=== PATIENT | male | born 1955 | race African-American/Black ===

== ENCOUNTER 2024-06-17 18:07 | Inpatient (IN) | payer MEDICARE ==
[2024-06-17] MEDS ORDERED: Bisacodyl 10 MG SUPP PR PRN (19:02)
[2024-06-17] MEDS ORDERED: Ondansetron PF 4 MG/2 ML Vial IVP PRN (19:02)
[2024-06-17] MEDS ORDERED: Acetaminophen 325 MG TAB PO PRN (19:02)
[2024-06-17] MEDS ORDERED: Communication Order-Pharmacy FS SCH (19:15)
[2024-06-17] MEDS: Tamsulosin HCl 0.4 MG CAP PO SCH (21:03)
[2024-06-17] MEDS: Famotidine 20 MG TAB PO SCH (21:03)
[2024-06-17] MEDS: HYDROcodone/Acetaminophen 5/325 mg Tablet PO PRN (21:05)
[2024-06-17] MEDS: Aspirin 81 mg Enteric Coated Tablet PO SCH (21:07)
[2024-06-17 21:13] LABS: ALT (SGPT) 15 U/L (8-55); AST (SGOT) 18 U/L (5-34); Alkaline Phosphatase 103 U/L (40-110); Anion Gap 12 mmol/L (10-20); BUN (Urea Nitrogen) 14 mg/dL (8.4-25.7); Bilirubin, Total 0.3 mg/dL (0.2-1.2); Calc. Creatinine Clearance 0 mL/min (70-130); Calcium 8.8 mg/dL (7.8-10.44); Carbon Dioxide 19 mmol/L (23-31); Chloride 111 mmol/L (98-107); Estimated GFR 95; Globulin 3.6 g/dL (2.4-3.5); Glucose 122 mg/dL (80-115); Potassium 3.5 mmol/L (3.5-5.1); Protein, Total 6.6 g/dL (5.8-8.1); Sodium 138 mmol/L (136-145)
[2024-06-17 21:17] LABS: PTT 35.7 sec (22.9-36.1)
[2024-06-17 21:20] LABS: Prothrombin Time 12.8 sec (12.0-14.7)
[2024-06-17] MEDS: TETANUS AND DIPHTHERIA TOX/PF 0.5 ML DISP.SYRIN IM SCH (22:25)
[2024-06-17 23:13] LABS: Bacteria/HPF None Seen HPF (None Seen); Bilirubin Negative (Negative); Blood, Urine Trace (Negative); Clarity Clear (Clear); Glucose, Urine (Dipstick) Normal (Negative); Ketone, Urine Negative (Negative); Leukocyte Negative Leu/uL (Negative); Nitrite Negative (Negative); Protein, Urine (Dipstick) 10 mg/dL (Neg-Trace); Specific Gravity, Urine 1.015 (1.002-1.036); Squamous Epithelial 0-3 HPF (0-3); Urobilinogen Normal mg/dL (Less than 2); pH, Urine 6.5 (5.0-9.0)
[2024-06-18] MEDS: Lisinopril 5 MG TAB PO SCH ×2 (00:02→07:59)
[2024-06-18] MEDS: Morphine 2 MG/ML VIAL SLOW IVP PRN (01:02)
[2024-06-18] MEDS: TETANUS, DIPHTHERIA TOX,ADULT (TDVAX) 0.5 ML VIAL IM ONE (07:51)
[2024-06-18 08:04] VITALS: BMI 23.5
[2024-06-18] MEDS ORDERED: PROPOFOL 20 ML ONE (09:39)
[2024-06-18] MEDS ORDERED: Lidocaine 1% PF 5 ML VIAL ONE (09:39)
[2024-06-18] MEDS ORDERED: Ondansetron PF 4 MG/2 ML Vial ONE (09:39)
[2024-06-18] MEDS ORDERED: fentaNYL 50 mcg/mL 1 mL Vial ONE ×2 (09:39→11:20)
[2024-06-18] MEDS ORDERED: Bupivacaine PF 0.5% 30 ML VIAL ONE (09:55)
[2024-06-18] MEDS ORDERED: Ondansetron HCl/PF 4 MG/2 ML Vial IVP PRN (10:47)
[2024-06-18] MEDS ORDERED: Promethazine HCl 25 MG/ML VIAL IM PRN (10:47)
[2024-06-18] MEDS ORDERED: fentaNYL PF 100 MCG/2 ML SYRINGE ONE (10:48)
[2024-06-18] MEDS ORDERED: Vancomycin 1 GM/200 ML (FROZEN) BAG ONE (11:39)
[2024-06-18] MEDS ORDERED: VANCOMYCIN IVPB PRN (11:46)
[2024-06-18] MEDS: Cefepime 2 GM in Sodium Chloride 0.9% 100 ML IVPB SCH (16:39)
[2024-06-18] MEDS: Vancomycin (BATCH) 1.25 GM in Premix 1 BAG IVPB SCH (18:21)
[2024-06-18] MEDS ORDERED: Vancomycin 1 GM in Premix 1 BAG IVPB SCH (21:00)
[2024-06-19 07:49] LABS: Vancomycin, Random 23.6 ug/mL (See Comment)
[2024-06-19] MEDS: Vancomycin (BATCH) 1.25 GM in Premix 1 BAG IVPB SCH (23:36)
[2024-06-20 06:41] LABS: Vancomycin, Random 15.9 ug/mL (See Comment)
[2024-06-20] MEDS ORDERED: Cefepime 2 GM in Sodium Chloride 0.9% 100 ML IVPB SCH (14:00)
[2024-06-20] MEDS: Vancomycin (BATCH) 1.5 GM in Premix 1 BAG IVPB SCH (18:36)
[2024-06-20] MEDS: Morphine 2 MG/ML VIAL SLOW IVP SCH (18:56)
[2024-06-21] MEDS: Morphine 4 MG/ML VIAL SLOW IVP PRN (08:57)
[2024-06-22 05:34] LABS: Vancomycin, Random 13.1 ug/mL (See Comment)
[2024-06-22] MEDS: Milk Of Magnesia 30 ML UDCUP PO PRN (08:46)
[2024-06-22] MEDS: Vancomycin 1 GM in Admixture Fee 1 EACH IVPB SCH (12:18)
[2024-06-22 15:18] VITALS: BMI 23.5
[2024-06-22] MEDS: Vancomycin 1 GM in Premix 1 BAG IVPB SCH (23:34)
[2024-06-23 06:22] LABS: Hemoglobin A1c 5.7 % (4.0-6.0)
[2024-06-23 06:28] LABS: Anion Gap 12 mmol/L (10-20); BUN (Urea Nitrogen) 24 mg/dL (8.4-25.7); Calc. Creatinine Clearance 76 mL/min (70-130); Calcium 8.9 mg/dL (7.8-10.44); Carbon Dioxide 23 mmol/L (23-31); Chloride 102 mmol/L (98-107); Estimated GFR 77; Glucose 94 mg/dL (80-115); Magnesium 2.4 mg/dL (1.6-2.6); Potassium 4.9 mmol/L (3.5-5.1); Sodium 132 mmol/L (136-145); Vancomycin, Random 19.9 ug/mL (See Comment)
[2024-06-23] MEDS: Pantoprazole DR 40 MG TAB PO SCH (08:31)
[2024-06-24 06:38] LABS: Anion Gap 14 mmol/L (10-20); BUN (Urea Nitrogen) 25 mg/dL (8.4-25.7); Calc. Creatinine Clearance 86 mL/min (70-130); Calcium 8.9 mg/dL (7.8-10.44); Carbon Dioxide 25 mmol/L (23-31); Chloride 102 mmol/L (98-107); Estimated GFR 89; Glucose 97 mg/dL (80-115); Magnesium 2.4 mg/dL (1.6-2.6); Potassium 4.5 mmol/L (3.5-5.1); Sodium 136 mmol/L (136-145)
[2024-06-24] MEDS ORDERED: Sodium Bicarbonate 2.5 MEQ/5 ML SDV ONE (08:07)
[2024-06-24] MEDS ORDERED: Lidocaine 1% PF 5 ML VIAL ONE ×2 (08:07→20:07)
[2024-06-24] MEDS ORDERED: Bupivacaine PF 0.5% 30 ML VIAL ONE (19:55)
[2024-06-24] MEDS ORDERED: Vancomycin HCl 500 MG VIAL ONE (19:55)
[2024-06-24] MEDS ORDERED: Thrombin 5000 UNITS/5 ML VIAL ONE (19:55)
[2024-06-24] MEDS ORDERED: Mineral Oil Sterile 10 ML VIAL ONE (19:55)
[2024-06-24] MEDS ORDERED: Tobramycin Sulfate 1.2 GM VIAL ONE (19:55)
[2024-06-24] MEDS ORDERED: fentaNYL PF 100 MCG/2 ML SYRINGE ONE (20:06)
[2024-06-24] MEDS ORDERED: Ondansetron PF 4 MG/2 ML Vial ONE (20:07)
[2024-06-24] MEDS ORDERED: PROPOFOL 20 ML ONE (20:07)
[2024-06-24] MEDS ORDERED: ePHEDrine Sulfate 50 MG/10 ML VIAL ONE (20:32)
[2024-06-24] MEDS ORDERED: PHENYLEPHRINE-NS 100 MCG/ML 10 ML SYRINGE ONE (20:36)
[2024-06-24] MEDS ORDERED: Bacitracin Zinc Ointment 30 gm TUBE ONE (21:00)
[2024-06-24] MEDS ORDERED: fentaNYL 50 mcg/mL 1 mL Vial ONE (22:17)
[2024-06-24] MEDS ORDERED: Labetalol HCl 100 MG/20 ML VIAL ONE (22:22)
[2024-06-25 06:43] LABS: Anion Gap 11 mmol/L (10-20); BUN (Urea Nitrogen) 19 mg/dL (8.4-25.7); Calc. Creatinine Clearance 74 mL/min (70-130); Calcium 8.7 mg/dL (7.8-10.44); Carbon Dioxide 25 mmol/L (23-31); Chloride 105 mmol/L (98-107); Estimated GFR 75; Glucose 89 mg/dL (80-115); Magnesium 2.2 mg/dL (1.6-2.6); Potassium 4.3 mmol/L (3.5-5.1); Sodium 137 mmol/L (136-145)
[2024-06-25 06:45] LABS: Vancomycin, Random 18.1 ug/mL (See Comment)
[2024-06-26 09:27] VITALS: BP 114/68; TEMP 97.5
== END 2024-06-26 20:20 | disposition home or self-care (01) | DRG 514 ==
LOC: T4-B 18:07
PROVIDERS: ADMIT Orthopaedic Surgery Hand Surgery; ATTEND Orthopaedic Surgery Hand Surgery
PROC: 0PBR0ZZ Excision of Right Thumb Phalanx, Open Approach (ICD-10-PCS; 2024-06-18)
PROC: 0HRGX73 Replacement of Left Hand Skin with Autologous Tissue Substitute, Full Thickness, External Approach (ICD-10-PCS; principal; 2024-06-24)
PROC: 0PBS0ZZ Excision of Left Thumb Phalanx, Open Approach (ICD-10-PCS; 2024-06-24)
PROC: 0HQQXZZ Repair Finger Nail, External Approach (ICD-10-PCS; 2024-06-24)
PROC: 0HBEXZZ Excision of Left Lower Arm Skin, External Approach (ICD-10-PCS; 2024-06-24)
PROC: 3E00X29 Introduction of Other Anti-infective into Skin and Mucous Membranes, External Approach (ICD-10-PCS; 2024-06-24)
PROC: 02HV33Z Insertion of Infusion Device into Superior Vena Cava, Percutaneous Approach (ICD-10-PCS; 2024-06-24)
PROC: B518ZZA Fluoroscopy of Superior Vena Cava, Guidance (ICD-10-PCS; 2024-06-24)
PROC: B548ZZA Ultrasonography of Superior Vena Cava, Guidance (ICD-10-PCS; 2024-06-24)
DX: M86.8X4 Other osteomyelitis, hand (principal); I10 Essential (primary) hypertension; R73.03 Prediabetes; I25.10 Atherosclerotic heart disease of native coronary artery without angina pectoris; C61 Malignant neoplasm of prostate; E78.5 Hyperlipidemia, unspecified; F17.210 Nicotine dependence, cigarettes, uncomplicated
CPT/HCPCS: 36415; 36573; 71046; 72190; 80048; 80202; 81001; 82565; 83036; 83735; 84153; 84443; 85610; 85730; 86141; 87070; 87076; 87077; 87186; 87205; 88307; 88311; 90714; 97139; A6258; C1713; C1751; J0665; J0692; J2272; J2405; J2704; J3010; J3260; J3370; J3370-JW

== ENCOUNTER → 2024-07-09 | Day surgery (SDC) | payer MEDICARE ==
[~2024-07-09] MED LIST: Lidocaine 1% PF 5 ML VIAL ONE; Sodium Bicarbonate 2.5 MEQ/5 ML SDV ONE
== END ==
LOC: SPEC 11:36
PROVIDERS: ATTEND Student in an Organized Health Care Education/Training Program
PROC: 05HY33Z Insertion of Infusion Device into Upper Vein, Percutaneous Approach (ICD-10-PCS; principal; 2024-07-09)
DX: M86.9 Osteomyelitis, unspecified (principal)
CPT/HCPCS: 36573; C1751